=== PATIENT | female | born 1990 | race Caucasian/White ===

== ENCOUNTER → 2024-06-09 | Day surgery (SDC) | payer MEDICAID ==
[~2024-06-09] VITALS: Ht 157.5 cm; Wt 77.0 kg
[~2024-06-09] MED LIST: ACETAMINOPHEN IV 1000 MG/100ML (10MG/ML) IV PRN; DexAMETHasone SOD PHOS 10MG/1ML VIAL INJ ONE; HYDR1TAB97 PO; IBUP-1456 PO; MEPERIDINE HCL (25 MG/ML) 1ML VIAL ONE; MEPERIDINE HCL (50 MG/ML) 1 ML VIAL ONE; METOCLOPRAMIDE HCL 5MG/ml INJ 2ml VIAL IV ONE; ONDANSETRON HCL 4 MG/2 ML VIAL IV ONE; ONDANSETRON HCL 4 MG/2 ML VIAL ONE; PROPOFOL 10 MG/ML 20 ML IV ONE; ROCURONIUM 10MG/ML 10ML VIAL IV ONE; SUCCINYLCHOLINE CHLORIDE 20 MG/ML 10ML VIAL IV ONE; SUGAMMADEX 200mg/2ml Vial (100MG/ML) IV ONE; ceFAZolin 2 GM/D5W100ml 100 ML IV ONE; ceFAZolin 2 GM/D5W50ml 50 ML IV ONE; fentaNYL CITRATE 100 MCG/2 ML VL ONE
--- NOTE | 2024-06-09 11:36 | ED.PDOC ---
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 Patient states that on Thursday (06/05/2024) she had a confirmed ectopic and was seen by Dr. Shen and given medication to break up the product of conception. Patient states that since then the pain has been increasing and is now bloating. Patient followed up with [facility] and was told to go to the ER in case there may be a rupture. Patient is here requesting an ultrasound to check if the ectopic ruptured. No other symptoms or modifying factors present at this time. 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 Family History Family History: Unknown Social History Smoker: Non-Smoker Alcohol: Occasionally Drugs: Marijuana Lives In: Home Constitutional: denies: chills, diaphoresis, fatigue, fever, malaise, sweats, weakness, others EENTM: denies: blurred vision, double vision, ear bleeding, ear discharge, ear drainage, ear pain, ear ringing, eye pain, eye redness, hearing loss, mouth pain, mouth swelling, nasal discharge, nose bleeding, nose congestion, nose pain, photophobia, tearing, throat pain, throat swelling, voice changes, others Respiratory: denies: cough, hemoptysis, orthopnea, SOB at rest, shortness of breath, SOB with excertion, stridor, wheezing, others Cardiovascular: denies: chest pain, dizzy spells, diaphoresis, Dyspnea on exertion, edema, irregular heart beat, left arm pain, lightheadedness, palpitations, PND, syncope, others Gastrointestinal: reports: abdominal pain, nausea; denies: abdomen distended, blood streaked bowels, constipated, diarrhea, dysphagia, difficulty swallowing, hematemesis, melena, poor appetite, poor fluid intake, rectal bleeding, rectal pain, vomiting, others Genitourinary: reports: pain, ; denies: abnormal vagina bleeding, burning, dyspareunia, dysuria, flank pain, frequency, hematuria, incontinence, vagina discharge, urgency, others Neurological: denies: dizziness, fainting, headache, left sided numbness, left sided weakness, numbness, paresthesia, pre-existing deficit, right sided numbness, right sided weakness, seizure, speech problems, tingling, tremors, weakness, others Musculoskeletal: denies: back pain, gout, joint pain, joint swelling, muscle pain, muscle stiffness, neck pain, others Integumetry: denies: bruises, change in color, change in hair/nails, dryness, laceration, lesions, lumps, rash, wounds, others Allergic/Immunocompromised: denies: Difficulty Healing, Frequent Infections, Hives, Itching, others Hematologic/Lymphatic: denies: anemia, blood clots, easy bleeding, easy bruising, swollen glands, others Endocrine: denies: excessive hunger, excessive sweating, excessive thirst, excessive urination, flushing, intolerance to cold, intolerance to heat, unexplained weight gain, unexplained weight loss, others Psychiatric: denies: anxiety, bipolar disorder, depression, hopeless, panic disorder, schizophrenia, sleepless, suicidal, others All Other Systems: Reviewed and Negative Physical Exam General Appearance: Moderate Distress, Normal HEENT: Normal ENT Inspection, Pharynx Normal, TMs Normal Neck: Full Range of Motion, Non-Tender, Normal, Normal Inspection Respiratory: Chest Non-Tender, Lungs Clear, No Accessory Muscle Use, No Respir atory Distress, Normal Breath Sounds Cardiovascular: No Edema, No JVD, No Murmur, No Gallop, Normal Peripheral Pulses, Regular Rate/Rhythm Breast Exam: Deferred Gastrointestinal: No Organomegaly, Non Tender, No Pulsatile Mass, Normal Bowel Sounds, Soft Genitalia: Deferred Pelvic: Deferred Rectal: Deferred Extremities: No calf tenderness, Normal capillary refill, Normal inspection, Normal range of motion, Non-tender, No pedal edema Musculoskeletal : Apperance: Normal 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) Vaginal Bleeding: - Complete, - Incomplete, - Inevitable, - Missed, - Threatened X-Ray, Labs, Meds, VS Vital Signs Date Time Temp Pulse Resp B/P (MAP) Pulse Ox O2 Delivery O2 Flow Rate FiO2 06/09/24 12:37 98.2 87 18 129/81 (97) 99 98.2 06/09/24 11:23 98.2 90 16 132/60 (84) 99 Lab Test 06/09/24 12:57 06/09/24 11:20 Range/Units White Blood Count Pending Red Blood Count Pending Hemoglobin Pending Hematocrit Pending Mean Corpuscular Volume Pending Mean Corpuscular Hemoglobin Pending Mean Corpuscular Hemoglobin Concent Pending Red Cell Distribution Width Pending Platelet Count Pending Mean Platelet Volume Pending Neutrophils (%) (Auto) Pending Lymphocytes (%) (Auto) Pending Monocytes (%) (Auto) Pending Basophils (%) (Auto) Pending Neutrophils # (Auto) Pending Lymphocytes # (Auto) Pending Monocytes # (Auto) Pending Sodium Level Pending Potassium Level Pending Chloride Level Pending Carbon Dioxide Level Pending Anion Gap Pending Blood Urea Nitrogen Pending Creatinine Pending Glomerular Filtration Rate Calc Pending BUN/Creatinine Ratio Pending Serum Glucose Pending Calcium Level Pending Prothrombin Time Pending Prothrombin Time INR Pending Activated Partial Thromboplast Time Pending Beta HCG, Quantitative 949.7 H 1.5-4.2 mIU/mL Current Medications Medications (Trade) Dose Ordered Sig/Mary Grace Route Start Time Stop Time Status Last Admin Sodium Chloride 1,000 ml @ 1,000 mls/hr Q1H ONCE IVB 06/09/24 12:45 06/09/24 13:44 06/09/24 12:57 Patient alert. Complaining of abdominal cramping. Vitals stable. Answering all questions. Reviewed her previous visit. Possible ectopic . She did speak to Dr. Bello for which he recommended pill to help with the ectopic. Explained to the patient. OBGYN has saw the patient. Ultrasound reviewed does reveal a fluid. She will be taken to the OR. Time of 1ST Reevaluation: 11:54 Reevaluation 1ST: Unchanged Patient Education/Counseling: Diagnosis, Treatment, Prognosis Family Education/Counseling: No Family Present Departure 1 Departure Time of Disposition: 11:56 Impression: Primary Impression: Ectopic Qualified Codes: O00.90 - Unspecified ectopic without intrauterine Disposition: ADMITTED INPATIENT Admit to: Med Surg Condition: Guarded Critical Care Note Critical Care Time?: Yes (45 min-critical care time only) Stability Stability form required: No Heart Score Heart Score: Heart Score Response (Comments) Value History N/A 0 EKG N/A 0 Age N/A 0 Risk Factors N/A 0 Troponin N/A 0 Total 0 I personally scribed for CRISTIAN MCWILLIAMS MD ([email or web address]) on 06/09/24 at 11:36. Electronically submitted by Cem Chisholm ([email or web address]). CRISTIAN MCWILLIAMS MD Jun 09, 2024 11:36
[2024-06-09] MEDS: MORPHINE SULFATE 4 MG/ML SYR/VIAL IV ONE (12:37)
[2024-06-09 12:55] VITALS: PULSE 78; RESP 12; O2SAT 99
[2024-06-09] MEDS: SODIUM CHLORIDE 0.9% 1,000 ML IVB ONE (12:57)
[2024-06-09] MEDS: ONDANSETRON HCL 4 MG/2 ML VIAL IV ONE (12:57)
--- NOTE | 2024-06-09 13:01 | DVHHP2 ---
MANAGER INSPECTION CC & HPI Date Date of Admission: Jun 09, 2024 Chief Complaints: Reason for admission: Ruptured Ectopic History of Present Complaints History of Present Complaints 34y LMP 04/24/24, EGA 6w4d Patient took Plan B on 05/04/24 Went to ER on 05/27 for HCG+ and pain/vaginal spotting Went to [facility] for [facility] TAB and given medical treatment (Misoprostol and Mefiprostone?) for Told HCG was still rising, so had D&C on 06/03 (no villi per patient on pathology) HCG was 3915 on 06/04 and 5248 on 06/05 Patient [facility] Presented to ER due to increased abdominal pain and minimal vaginal bleeding. Denies syncope, palpitations or dizziness. Pain has increased and been present since last night. 04/02 pain. US shows possible ruptured right ectopic with free fluid moderate in the pelvis. HCG is 900 Past Medical History Cardiac: No pertinent Hx Pulmonary: No pertinent Hx Central Nervous System: No pertinent Hx GI: No pertinent Hx Hemotology/Oncology: No pertinent Hx Hepatobiliary: No pertinent Hx Psychiatric: No pertinent Hx Musculoskeletal: No pertinent Hx Rheumotologic: No pertinent Hx Infectious Disease: No peritnent Hx ENT: No pertinent Hx Renal/: No pertinent Hx Endocrine: No pertinent Hx Dermatology: No pertinent Hx Past Surgical History: No pertinent Hx Family History: No pertinent Hx Smoker: No Hx (Negative) Alocohol: None Drugs: None Lives with: With family Domestic Violence: Neg Review of Systems Constitutional: No symptom reported Ears, Nose, & Throat: No symptom reported Eyes: No symptom reported Pulmonary/Respiratory: No symptom reported Cardiovascular: No symptom reported Gastrointestinal: No symptom reported Genitourinary: No symptom reported Musculoskeletal: No symptom reported Skin: No symptom reported Psychiatric: No symptom reported Endocrine: No symptom reported Hemotologic/Lymphatic: No symptom reported Allergies: Coded Allergies: Penicillins (Verified Allergy, Unknown, 06/06/24) Physical Exam Physical Exam Vitals: Vital Signs Date Time Temp Pulse Resp B/P (MAP) Pulse Ox O2 Delivery O2 Flow Rate FiO2 06/09/24 12:37 98.2 87 18 129/81 (97) 99 98.2 HEENT: NCAT Heart: Rhythm Normal Lungs: Clear Abdomen: Other (Tender, distended. guarding in RLQ) Extremities: Normal Reflexes: Normal Manager Hris/Pelvic Exam: Not done Assessment and Plan Plan Assessment and Plan: Suspected Ruptured Rt Ectopic (tubal) with hemoperitoneum (free fluid on US) Plan: Consented for Operative laparoscopy, evacuation of hemoperitoneum, Right Salpingectomy possible right salpingoophorectomy, possible laparotomy R/B/A discussed with patient. Risks of pain, scar, bleeding, infection, injury to bowel/bladder, adjacent organs reviewed. Informed consent obtained RN in ER witnessed consent process Consent obtained for Blood transfusion . Date of Service: Jun 09, 2024 Billing Provider: [place] DO Common Visit Codes: [id number] INP/OBS CARE (HIGH) [place] DO Jun 09, 2024 13:01
[2024-06-09 13:08] LABS: INR 0.98 (0.9-1.15); Partial Thromboplastin Time 27.3 SEC (24.5-34.5); Prothrombin Time 10.4 sec (9.3-11.8)
--- NOTE | 2024-06-09 13:09 | DVH ---
INDICATION: Ectopic follow-up TECHNIQUE: Grayscale, color-flow Doppler, and spectral Doppler ultrasound of the pelvis is COMPARISON: US OB ULTRASOUND COMP LESS 14WKS on DOS: 06/06/24, US OB ULTRASOUND COMP LESS 14WKS on DO S: 06/06/24 FINDINGS: The uterus measures 9.8 x 4.1 x 6.2 cm. No intrauterine is visualized compared to prior exa m. Tiny sac-like structure seen within the endometrium without pole or yolk sac identified at t his time. Right ovary measures 3.2 x 2.3 x 2.9 cm. Masslike structure adjacent to the right ovary wit h peripheral hypervascularity. This measures a proximally 2.0 x 1.6 x 1.9 cm. Right ovary demonstrate s dopplerable blood flow and spectral analysis. Left ovary measures 2.4 x 2.4 x 1.5 cm which appears within normal limits. Increase in small volume free fluid in the pelvis with debris. IMPRESSION: 1. No definite intrauterine at this time. Masslike structure in the right adnexal region w ith peripheral hypervascularity suggestive of ectopic again visualized. Increase in small v olume free fluid in the pelvis with debris which may represent hemoperitoneum. Ruptured ectopic pregn alyce is of concern.
[2024-06-09 13:13] LABS: Basophils # (auto) 0.1 10 ^3/uL (0-0.2); Basophils % (auto) 0.7 % (0.0-2.0); Eosinophils # (auto) 0.1 10 ^3/uL (0-0.8); Eosinophils % (auto) 1.1 % (0.0-7.0); Hematocrit 35.9 % (36.0-46.0); Lymphocytes % (auto) 25.5 % (10.0-50.0); Mean Corpuscular Hgb Conc. 33.4 g/dL (32.0-36.0); Mean Corpuscular Volume 95.8 fL (80.0-100.0); Monocytes # (auto) 0.5 10 ^3/uL (0-1.3); Monocytes % (auto) 4.3 % (0.0-12.0); Neutrophils % (auto) 68.4 % (37.0-80.0); Nucleated Red Blood Cells % 0.1 %; Platelet Count (auto) 335 10^3/uL (140-450); Red Blood Cells 3.75 10^6/uL (4.0-5.20); Red Cell Distribution Width 13.2 % (11.8-14.3); White Blood Cell 11.7 10^3/uL (4.4-10.8)
[2024-06-09] MEDS: LACTATED RINGER'S 1,000 ML IV SCH (13:15)
[2024-06-09 13:25] LABS: Chloride 108 mmol/L (98-107); Potassium 3.5 mmol/L (3.5-5.1); Sodium 138 mmol/L (136-145)
[2024-06-09 13:26] LABS: Anion Gap 4 (5-15); Calcium 9.7 mg/dL (8.7-10.4); Carbon Dioxide 26 mmol/L (20-31)
[2024-06-09 13:31] LABS: Glucose 93 mg/dL (74-106)
[2024-06-09 13:41] LABS: BUN/Creatinine Ratio 6.8 (10.0-20.0); Blood Urea Nitrogen < 5 mg/dL (9-23)
[2024-06-09 14:18] LABS: Urine Bacteria None Seen /hpf (None Seen)
[2024-06-09 14:37] LABS: Urine Blood 3+ /uL (Negative); Urine Clarity Turbid (Clear); Urine Color Yellow (Yellow); Urine Mucus FEW (None Seen); Urine Protein, UAD 1+ (Negative); Urine Specific Gravity 1.032 (1.001-1.035); Urine Urobilinogen 2 mg/dL (Negative); Urine WBC 10 /hpf (0 - 5)
--- NOTE | 2024-06-09 14:46 | DVH ---
EXAM: XY CHEST XRAY 1 VIEW Indication:S/P NG TUBE PLACEMENT Technique: Single frontal view of the chest was obtained Comparison: None FINDINGS: Lines and Tubes: Enteric tube projects in appropriate position. Lungs: No focal consolidation. Pleura: No effusion. No pneumothorax. Cardiomediastinal contours: Unremarkable Bones: No acute osseous abnormality. IMPRESSION: Enteric tube projects in appropriate position. No acute cardiopulmonary disease.
[2024-06-09] MEDS: BUPIVACAINE 0.25% INJ 50ML VIAL ONE (15:51)
[2024-06-09 16:10] VITALS: TEMP 97.5
--- NOTE | 2024-06-09 16:15 | DVHDS2 ---
Physician Discharge Progress N Final Diagnosis: Rt. Tubal s/p laparoscopic Rt Salpingectomy Operations or Procedures: Operations or Procedures Laparoscopic Rt salpingectomy, evacuation of hemoperitoneum Condition on Discharge: Stable Disposition: Home Discharge Instructions: Diet: Regular Activity: Light activity Follow Up/Referral: [address] Lake Medications: [place] 5mg, Ibuprofen 600mg Follow Up Care: Discharge Statement: "Patient was advised to return to the ER or call 911 if any headaches, dizziness, shortness of breath, chest pain, abdominal pain, bleeding, fevers, or worsening of medical condition. Patient was counseled about treatment plan, medications, possible side effects, patientverbalized understanding. All questions were answered to the best of my ability. This discharge took greater then 30 minutes in planning, reviewing documentation, counseling the patient, and discussing with other team members." S[place] DO Jun 09, 2024 16:15
--- NOTE | 2024-06-09 16:37 | DVHOP ---
DATE OF SURGERY: 06/09/2024 PREOPERATIVE DIAGNOSIS: Ruptured ectopic . FINAL DIAGNOSIS: Ruptured right tubal (ectopic) . 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 TYPE OF ANESTHESIA: General endotracheal. ANESTHESIOLOGIST: Jose Garcia DO PROCEDURES PERFORMED: * Operative laparoscopic right total salpingectomy. * Evacuation of hemoperitoneum. DESCRIPTION OF FINDINGS: An enlarged uterus, approximately 10 week size, uterine cavity sounds to 9 cm. The left fallopian tube and ovary were normal, however did have filmy adhesions. The right fallopian tube contained an ampullary 3 cm ectopic with bleeding. There was 100 mL of hemoperitoneum and clots noted in the pelvis. There was adhesions in the right lower quadrant of the bowel to the abdominal wall. There were filmy adhesions in the posterior cul-de-sac. Other intraperitoneal anatomy was normal. Appendix visualized. INDICATIONS FOR SURGERY: Unsuccessful treatment with methotrexate, free fluid on ultrasound and increasing pelvic pain TECHNICAL PROCEDURE: After informed consent was obtained, the patient was taken to the operating room where her general anesthesia was found to be adequate. She was placed in dorsal lithotomy position in Alec stirrups. The vagina, perineum and abdomen were thoroughly prepped and the patient sterilely draped in the usual fashion. A pelvic exam was then performed under anesthesia. A weighted speculum was placed into the patient's vagina. The anterior lip of the cervix was grasped with a single tooth tenaculum. Uterine cavity sounded to 9 cm. The HUMI uterine manipulator was placed transcervically and the balloon inflated. A transurethral Sarkar was placed. All instrumentation was removed from the patient's vagina. Attention was then placed to the abdomen where a 5 mm skin incision was made at the base of the umbilicus. The Veress needle was used to enter the peritoneal cavity. Intraperitoneal placement was confirmed with the hanging water drop test. Carbon dioxide gas was infused and pneumoperitoneum obtained in the usual fashion. Using a 5 mm Optiview trocar direct entry into the abdomen was performed. All layers of the abdominal wall were visualized and successful entry into the peritoneal cavity was confirmed directly with the laparoscope. Survey of the abdomen and pelvis revealed the above noted findings. A 12 mm Optiview trocar was placed to the patient's left of midline under direct visualization and another 5 mm to the patient's right of midline. The fallopian tube was found on the right as described above. The uterus was manipulated with the HUMI manipulator. The abdomen was systematically inspected as described above. The hemoperitoneum was evacuated using suction. Approximately 110 mL of hemoperitoneum were present. The fallopian tube was bleeding at the distal end on the right, but no transluminal rupture of the fallopian tube. Using the LigaSure device, the right fallopian tube was transected with the LigaSure device. Hemostasis was obtained. There was no bleeding from the mesosalpinx. The right fallopian tube containing the ectopic was placed in the EndoCatch bag and removed through the 12 mm port. The specimen was submitted. The abdomen was thoroughly irrigated with saline and hemostasis was confirmed under low pressure. I then proceeded to close the #12 port using the Benji-Sarah closure device. We used 0 Vicryl to approximate the fascial defect with good tissue approximation. Next, the carbon dioxide gas was released. The trocars were removed under direct visualization. The three abdominal incisions were closed using a 3-0 Monocryl in subcuticular fashion and a thin layer of Dermabond was placed over these incisions. The umbilicus was injected with 10 mL of 0.25% Marcaine with epinephrine and the left and right incisions were each injected with 5 mm of 0.25% Marcaine with epinephrine. Next, the transurethral Sarkar and the cervical manipulator were removed with no bleeding noted. The patient was taken out of lithotomy position, awakened, and taken to recovery room in stable condition. INTRAOPERATIVE COMPLICATIONS: None. ESTIMATED BLOOD LOSS: Less than 15 mL from the procedure, 110 mL from hemoperitoneum. SPECIMENS: Right fallopian tube containing the ectopic . COMPLICATIONS: None. MEDICATIONS: The patient received 2 grams of Ancef prior to skin incision. OTHER FINDINGS: The patient's blood type is O Rh positive. DO ADRI Aguero TID: [id number] RECEIPT: [id number] [facility]
[2024-06-09] MEDS: MEPERIDINE HCL (25 MG/ML) 1ML VIAL IV PRN (16:40)
[2024-06-09 17:25] VITALS: BP 123/75; PULSE 77; RESP 14; O2SAT 98
== END | disposition home or self-care (01) ==
LOC: ER 11:08 → SUR 11:08 → ER 14:29
PROVIDERS: ATTEND Obstetrics & Gynecology
DX: O00.101 Right tubal pregnancy without intrauterine pregnancy (principal); K66.0 Peritoneal adhesions (postprocedural) (postinfection); F11.90 Opioid use, unspecified, uncomplicated; E66.01 Morbid (severe) obesity due to excess calories; Z68.31 Body mass index [BMI] 31.0-31.9, adult; Z88.0 Allergy status to penicillin
CPT/HCPCS: 36415; 59151; 71045; 76801; 80048; 81001; 84702; 85025; 85610; 85730; 86850; 86900; 86901; 88305; 99285; J0330; J0690; J1100; J2175; J2405; J2704; J3010; J3490

== ENCOUNTER 2025-05-06 03:10 | Emergency (ER) | payer MEDICAID ==
[~2025-05-06] VITALS: Ht 154.9 cm; Wt 76.0 kg
[~2025-05-06 03:10] MED LIST changes: -ACETAMINOPHEN IV 1000 MG/100ML (10MG/ML) IV PRN; -DexAMETHasone SOD PHOS 10MG/1ML VIAL INJ ONE; -MEPERIDINE HCL (25 MG/ML) 1ML VIAL ONE; -MEPERIDINE HCL (50 MG/ML) 1 ML VIAL ONE; -METOCLOPRAMIDE HCL 5MG/ml INJ 2ml VIAL IV ONE; -ONDANSETRON HCL 4 MG/2 ML VIAL IV ONE; -ONDANSETRON HCL 4 MG/2 ML VIAL ONE; -PROPOFOL 10 MG/ML 20 ML IV ONE; -ROCURONIUM 10MG/ML 10ML VIAL IV ONE; -SUCCINYLCHOLINE CHLORIDE 20 MG/ML 10ML VIAL IV ONE; -SUGAMMADEX 200mg/2ml Vial (100MG/ML) IV ONE; -ceFAZolin 2 GM/D5W100ml 100 ML IV ONE; -ceFAZolin 2 GM/D5W50ml 50 ML IV ONE; -fentaNYL CITRATE 100 MCG/2 ML VL ONE
[2025-05-06 03:15] VITALS: BP 113/64; PULSE 70; RESP 16; TEMP 98; O2SAT 100
--- NOTE | 2025-05-06 03:28 | ED.PDOC ---
EVENTS MANAGER HPI Comments 35-year-old female came to ER For vaginal bleeding. Patient is a ap proximately 11 weeks . States few hours ago, she started having vaginal bleeding with mild abdominal cramping prompting patient to come to the emergency room Chief Complaint: Vaginal Bleed Time Seen by MD: 03:27 Reviewed Notes: Nurses Notes Allergies: Coded Allergies: Penicillins (Verified Allergy, Unknown, 06/06/24) Home Meds Active Scripts Ibuprofen (Ibuprofen) 800 Mg Tab, 1 TAB PO TID PRN, #30 TAB Prov:[place] DO 06/09/24 Hydrocodone-Acetaminophen (Hydrocodone/Acetaminophen 5-325 mg) 1 Tab Tab, 1 TAB PO Q6HPRN PRN, #5 TAB Prov:HALIMALUISRadhaSANTO Deborah DO 06/09/24 Information Source: Patient Mode of Arrival: Ambulatory Timing: Hours Severity: Mild Bleeding Quality: Bright Red Onset Of Mass/Bleeding: Spontaneous Sexual Activity: Last Consensual Lacey: Unknown Control: None History of: Current Associated Signs and Symptoms: Vaginal Bleeding, Abdominal Pain Past Medical History PAST MEDICAL HISTORY: Denies 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 6 Para 4 LMP February 25, 2025 Family History Family History: Reviewed,noncontributory to illness Social History Smoker: Non-Smoker Alcohol: Denies ETOH Use Drugs: Denies Drug Use Lives In: Home Constitutional: denies: chills, diaphoresis, fatigue, fever, malaise, sweats, weakness, others EENTM: denies: blurred vision, double vision, ear bleeding, ear discharge, ear drainage, ear pain, ear ringing, eye pain, eye redness, hearing loss, mouth pain, mouth swelling, nasal discharge, nose bleeding, nose congestion, nose pain, photophobia, tearing, throat pain, throat swelling, voice changes, others Respiratory: denies: cough, hemoptysis, orthopnea, SOB at rest, shortness of breath, SOB with excertion, stridor, wheezing, others Cardiovascular: denies: chest pain, dizzy spells, diaphoresis, Dyspnea on exertion, edema, irregular heart beat, left arm pain, lightheadedness, palpitations, PND, syncope, others Gastrointestinal: reports: abdominal pain; denies: abdomen distended, blood streaked bowels, constipated, diarrhea, dysphagia, difficulty swallowing, hematemesis, melena, nausea, poor appetite, poor fluid intake, rectal bleeding, rectal pain, vomiting, others Genitourinary: reports: abnormal vagina bleeding; denies: burning, dyspareunia, dysuria, flank pain, frequency, hematuria, incontinence, pain, , vagina discharge, urgency, others Neurological: denies: dizziness, fainting, headache, left sided numbness, left sided weakness, numbness, paresthesia, pre-existing deficit, right sided numbness, right sided weakness, seizure, speech problems, tingling, tremors, weakness, others Musculoskeletal: denies: back pain, gout, joint pain, joint swelling, muscle pain, muscle stiffness, neck pain, others Integumetry: denies: bruises, change in color, change in hair/nails, dryness, laceration, lesions, lumps, rash, wounds, others Allergic/Immunocompromised: denies: Difficulty Healing, Frequent Infections, Hives, Itching, others Hematologic/Lymphatic: denies: anemia, blood clots, easy bleeding, easy bruising, swollen glands, others Endocrine: denies: excessive hunger, excessive sweating, excessive thirst, excessive urination, flushing, intolerance to cold, intolerance to heat, unexplained weight gain, unexplained weight loss, others Psychiatric: denies: anxiety, bipolar disorder, depression, hopeless, panic disorder, schizophrenia, sleepless, suicidal, others Physical Exam General Appearance: No Apparent Distress, Normal HEENT: Normal ENT Inspection, Pharynx Normal, TMs Normal Neck: Full Range of Motion, Non-Tender, Normal, Normal Inspection Respiratory: Chest Non-Tender, Lungs Clear, No Accessory Muscle Use, No Respiratory Distress, Normal Breath Sounds Cardiovascular: No Edema, No JVD, No Murmur, No Gallop, Normal Peripheral Pulses, Regular Rate/Rhythm Breast Exam: Deferred Gastrointestinal: No Organomegaly, Non Tender, No Pulsatile Mass, Normal Bowel Sounds, Soft Genitalia: Deferred Pelvic: Deferred Rectal: Deferred Extremities: No calf tenderness, Normal capillary refill, Normal inspection, Normal range of motion, Non-tender, No pedal edema Musculoskeletal : Apperance: Normal Neurologic: Alert, events traffic controller II-XII nml as Tested, No Motor Deficits, Normal Affect, Normal Mood, No Sensory Deficits Cerebellar Function: Normal Reflexes: Normal Skin: Dry, Normal Color, Warm Lymphatic: No Adenopathy Was a procedure done? 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 Diagnosis (PIN TICKET MACHINE OPERATOR) Vaginal Bleeding: - Missed, - Threatened, Blood Loss Anemia, UTI X-Ray, Labs, Meds, VS Vital Signs Date Time Temp Pulse Resp B/P (MAP) Pulse Ox O2 Delivery O2 Flow Rate FiO2 05/06/25 03:15 98.0 70 16 113/64 100 98.0 Lab Test 05/06/25 03:36 Range/Units White Blood Count 11.7 H 4.4-10.8 10^3/uL Red Blood Count 4.02 4.0-5.20 10^6/uL Hemoglobin 12.6 12.2-16.2 g/dL Hematocrit 37.1 36.0-46.0 % Mean Corpuscular Volume 92.2 80.0-100.0 fL Mean Corpuscular Hemoglobin 31.3 28.0-32.0 pg Mean Corpuscular Hemoglobin Concent 34.0 32.0-36.0 g/dL Red Cell Distribution Width 13.7 11.8-14.3 % Platelet Count 313 140-450 10^3/uL Mean Platelet Volume 8.3 6.9-10.8 fL Neutrophils (%) (Auto) 67.6 37.0-80.0 % Lymphocytes (%) (Auto) 25.6 10.0-50.0 % Monocytes (%) (Auto) 4.9 0.0-12.0 % Eosinophils (%) (Auto) 0.8 0.0-7.0 % Basophils (%) (Auto) 1.1 0.0-2.0 % Neutrophils # (Auto) 7.9 1.6-8.6 10 ^3/uL Lymphocytes # (Auto) 3.0 0.4-5.4 10 ^3/uL Monocytes # (Auto) 0.6 0-1.3 10 ^3/uL Eosinophils # (Auto) 0.1 0-0.8 10 ^3/uL Basophils # (Auto) 0.1 0-0.2 10 ^3/uL Nucleated Red Blood Cells 0.0 % Beta HCG, Quantitative 10411.4 H 1.5-4.2 mIU/mL Time of 1ST Reevaluation: 03:24 Reevaluation 1ST: Unchanged Time of 2ND Reevaluation: 05:00 Reevaluation 2ND: eloped Patient Education/Counseling: Diagnosis, Treatment Family Education/Counseling: No Family Present Comments Patient did not want to wait for the ultrasound and did not want to give urine and eloped Departure 1 Departure Time of Disposition: 05:00 Impression: Primary Impression: Threatened miscarriage Disposition: LEFT AWOL/ELOPED Condition: Other (Unknown) Critical Care Note Critical Care Time?: No Stability Stability form required: No Heart Score Heart Score: Heart Score Response (Comments) Value History N/A 0 EKG N/A 0 Age N/A 0 Risk Factors N/A 0 Troponin N/A 0 Total 0 I personally scribed for LINDA ONEAL MD ([email or web address]) on 05/06/25 at 03:28. Electronically submitted by Vito Love ([facility]). LINDA ONEAL MD May 06, 2025 03:28
[2025-05-06 03:50] LABS: Hematocrit 37.1 % (36.0-46.0); Hemoglobin 12.6 g/dL (12.2-16.2); Mean Corpuscular Hemoglobin 31.3 pg (28.0-32.0); Mean Corpuscular Volume 92.2 fL (80.0-100.0); Nucleated Red Blood Cells % 0.0 %
== END 2025-05-06 04:44 | disposition left against medical advice (07) ==
LOC: ER 03:10
DX: O20.0 Threatened abortion (principal); Z3A.11 11 weeks gestation of pregnancy; Z88.0 Allergy status to penicillin
CPT/HCPCS: 36415; 84702; 85025; 86900; 86901

== ENCOUNTER 2025-05-06 08:40 | Emergency (ER) | payer MEDICAID ==
[~2025-05-06] VITALS: Ht 154.9 cm; Wt 75.0 kg
[2025-05-06 08:53] VITALS: BP 117/78; PULSE 74; RESP 18; TEMP 98.2; O2SAT 99
--- NOTE | 2025-05-06 08:57 | ED.PDOC ---
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 PATIENT STATES THAT SHE IS CURRENTLY 11 WEEKS AND STATES SINCE YESTERDAY SHE HAS BEING HAVING VAGINAL BLEEDING. PATIENT STATES THAT SHE HAS GONE THROUGH 3-4 PADS SINCE AND STATES SHE HAS BEEN HAVING ASSOCIATED ABDOMINAL CRAMPING. PATIENT DENIES FEVER, CHILLS, SHORTNESS OF BREATH, CHEST PAIN, ABDOMINAL PAIN, NAUSEA, VOMITING, HEADACHE, OR OTHER COMPLAINTS. NO OTHER SYM PTOMS OR MODIFYING FACTORS AT THIS TIME. PATIENT IS ALERT, ORIENTED X 4, AND HAS STEADY GAIT. Chief Complaint: Vaginal Bleed Time Seen by MD: 08:54 Reviewed Notes: Nurses Notes, Medications, Allergies Allergies: Coded Allergies: Penicillins (Verified Allergy, Unknown, 06/06/24) Home Meds Active Scripts Ibuprofen (Ibuprofen) 800 Mg Tab, 1 TAB PO TID PRN, #30 TAB Prov:[place] DO 06/09/24 Hydrocodone-Acetaminophen (Hydrocodone/Acetaminophen 5-325 mg) 1 Tab Tab, 1 TAB PO Q6HPRN PRN, #5 TAB Prov:[place] DO 06/09/24 Information Source: Patient Mode of Arrival: Ambulatory Timing: Days Prehospital treatment: Treatment Severity: Mild Vaginal Discharge: None Vaginal Lesions: None Vaginal Mass: None Onset Of Mass/Bleeding: Spontaneous Sexual Activity: History of: Current Blood Type: Unknown Symptoms of Possible : None Associated Signs and Symptoms: Vaginal Bleeding, Cramping Past Medical History PAST MEDICAL HISTORY: Denies Surgical History: Denies all surgeries 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 Family History Family History: Reviewed,noncontributory to illness Social History Smoker: Non-Smoker Alcohol: Denies ETOH Use Drugs: Denies Drug Use Lives In: Home Constitutional: denies: chills, diaphoresis, fatigue, fever, malaise, sweats, weakness, others EENTM: denies: blurred vision, double vision, ear bleeding, ear discharge, ear drainage, ear pain, ear ringing, eye pain, eye redness, hearing loss, mouth pain, mouth swelling, nasal discharge, nose bleeding, nose congestion, nose pain, photophobia, tearing, throat pain, throat swelling, voice changes, others Respiratory: denies: cough, hemoptysis, orthopnea, SOB at rest, shortness of breath, SOB with excertion, stridor, wheezing, others Cardiovascular: denies: chest pain, dizzy spells, diaphoresis, Dyspnea on exertion, edema, irregular heart beat, left arm pain, lightheadedness, palpitations, PND, syncope, others Gastrointestinal: denies: abdomen distended, abdominal pain, blood streaked bowels, constipated, diarrhea, dysphagia, difficulty swallowing, hematemesis, melena, nausea, poor appetite, poor fluid intake, rectal bleeding, rectal pain, vomiting, others Genitourinary: reports: abnormal vagina bleeding, ; denies: burning, dyspareunia, dysuria, flank pain, frequency, hematuria, incontinence, pain, vagina discharge, urgency, others Neurological: denies: dizziness, fainting, headache, left sided numbness, left sided weakness, numbness, paresthesia, pre-existing deficit, right sided numbness, right sided weakness, seizure, speech problems, tingling, tremors, w eakness, others Musculoskeletal: denies: back pain, gout, joint pain, joint swelling, muscle pain, muscle stiffness, neck pain, others Integumetry: denies: bruises, change in color, change in hair/nails, dryness, laceration, lesions, lumps, rash, wounds, others Allergic/Immunocompromised: denies: Difficulty Healing, Frequent Infections, Hives, Itching, others Hematologic/Lymphatic: denies: anemia, blood clots, easy bleeding, easy bruising, swollen glands, others Endocrine: denies: excessive hunger, excessive sweating, excessive thirst, excessive urination, flushing, intolerance to cold, intolerance to heat, unexplained weight gain, unexplained weight loss, others Psychiatric: denies: anxiety, bipolar disorder, depression, hopeless, panic disorder, schizophrenia, sleepless, suicidal, others All Other Systems: Reviewed and Negative (SEE HPI) Physical Exam General Appearance: No Apparent Distress, Normal HEENT: Normal ENT Inspection, PERRL/EOMI, Pharynx Normal, TMs Normal Neck: Full Range of Motion, Non-Tender, Normal, Normal Inspection Respiratory: Chest Non-Tender, Lungs Clear, No Accessory Muscle Use, No Respiratory Distress, Normal Breath Sounds Cardiovascular: No Edema, No JVD, No Murmur, No Gallop, Normal Peripheral Pulses, Regular Rate/Rhythm Breast Exam: Deferred Gastrointestinal: No Organomegaly, Non Tender, No Pulsatile Mass, Normal Bowel Sounds, Soft Genitalia: Deferred Pelvic: Normal External Exam, Vaginal Bleeding (NO ACTIVELY VAGINAL BLEEDING AND BLOOD CLOTS. ) Rectal: Deferred Extremities: No calf tenderness, Normal capillary refill, Normal inspection, Normal range of motion, Non-tender, No pedal edema Musculoskeletal : Apperance: Normal Neurologic: Alert, needle control cheniller II-XII nml as Tested, No Motor Deficits, Normal Affect, Normal Mood, No Sensory Deficits Cerebellar Function: Normal Reflexes: Normal Skin: Dry, Normal Color, Warm Peripheral Pulses: 2+ carotid (R), 2+ carotid (L) Lymphatic: No Adenopathy Was a procedure done? 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 Diagnosis (SHOWCASE MAKER) Vaginal Bleeding: Cervicitis, PID, UTI, Vaginitis, Other (CURRENT , SUBCHORIONIC HEMORRHAGE) X-Ray, Labs, Meds, VS Vital Signs Date Time Temp Pulse Resp B/P (MAP) Pulse Ox O2 Delivery O2 Flow Rate FiO2 05/06/25 08:53 98.2 74 18 117/78 (91) 99 98.2 05/06/25 08:53 74 18 99 Room Air* 0 21 05/06/25 08:43 98.0 75 16 108/76 98 98.0 Lab Test 05/06/25 08:55 Range/Units Urine Color Light-yellow Yellow Urine Clarity Turbid H Clear Urine pH 7.0 5.0-9.0 Urine Specific Gladys 1.011 1.001-1.035 Urine Protein Negative Negative Urine Ketones 2+ H Negative Urine Blood 3+ H Negative /uL Urine Nitrite Negative Negative Urine Bilirubin Negative Negative Urine Urobilinogen Normal Negative mg/dL Urine Leukocyte Esterase Negative Negative /uL Urine RBC 2 0 - 4 /hpf Urine Microscopic WBC 2 0-5 /HPF Urine Squamous Epithelial Cells Few <5 /hpf Urine Bacteria Few H None Seen /hpf Urine Glucose Normal Normal mg/dL PATIENT: LATONYA GARZACT: [id number]: [id number] : 1990 LOC: ER ROOM / BED: / AGE / SEX: 35 / F ADM STATUS: REG ER SERVICE [id number] ORDERING PHYSICIAN: BRETT MONCADA PROCEDURE(s): OB4US - OB ULTRASOUND COMP LESS 14WKS REASON: VAGINAL BLEEDING, BETA-HC ORDER NUMBER(s): [id number], ACCESSION NUMBER(s): [id number] CLINICAL HISTORY: VAGINAL BLEEDING, BETA-HC COMPARISON:US OB < 14 WKS on DOS: 04/01/25, US OB ULTRASOUND COMP LESS 14WKS on DOS: 06/09/24, US OB ULTRASOUND COMP LESS 14WKS on DOS: 06/06/24 TECHNIQUE: Transabdominal grayscale sonographic imaging of the uterus and ovaries was performed, assisted by color Doppler technique. Duplex Doppler ultrasound of both ovaries was also performed. FINDINGS: The uterus measures 12.5 x 9.0 x 5.8 cm. There is an intrauterine gestational sac with pole visualized. [place]-rump length measures 3.73 cm, corresponding to an estimated gestational age of 10 weeks 4 days. There is a subchorionic hemorrhage adjacent to the gestational sac with associated septations, measuring up to 7.3 x 0.9 x 6.0 cm. heart rate measures 169 beats per minute. Right ovary measures 2.6 x 1.0 x 2.2 cm. Arterial and venous blood flow demonstrated. Left ovary measures 2.7 x 2.2 x 2.3 cm. Arterial and venous blood flow demonstrated. IMPRESSION: 1. Single living intrauterine with estimated gestational age of 10 weeks 4 days based on 1st trimester ultrasound crown-rump length with BRANDAN of 11/28/2025. 2. Subchorionic hemorrhage adjacent to the gestational sac as described above. ATED BY: JOHN GEORGE DO DICTATED DATE/TIME: 05/06/25 1017 SIGNED BY: JOHN GEORGE DO SIGNED DATE/TIME: 05/06/25 1017 CC: X-Ray, Labs, Meds, VS Comment COURSE: EXTERNAL MEDICAL RECORDS REVIEWED: [NONE] INDEPENDENT HISTORIANS: [NONE] SOCIAL DETERMINANTS OF HEALTH: [NONE] LABS ORDERED: URINALYSIS REVIEWED AND INTERPRETED RESULTS: NONE IMAGING ORDERED: OB ULTRASOUND TREATMENTS ORDERED: NO PROCEDURES PERFORMED: NONE CRITICAL CARE TIME: NONE I HAVE DISCUSSED THE PATIENT WITH THE ATTENDING PHYSICIAN, HE AGREES WITH THE PATIENT'S PLAN OF CARE AND DISPOSITION. BASED ON HISTORY OF PRESENT ILLNESS, AND PHYSICAL EXAM, PATIENT WILL BE DISCHARGED HOME. SHARED DECISION MAKING: DISCUSSED WITH PATIENT THAT THEIR WORKUP WAS NORMAL. PATIENT INSTRUCTED TO FOLLOW UP WITH ELECTRIC METER TESTER HELPER IN 1-2 DAYS FOR RE-EVALUATION OF SYMPTOMS. PATIENT VERBALIZES UNDERSTANDING TO RETURN TO ED FOR NEW OR WORSENING SYMPTOMS OR IF FOLLOW UP WITH PCP CANNOT BE OBTAINED. PATIENT FEELS COMFORTABLE GOING HOME AT THIS TIME. ALL QUESTIONS ADDRESSED AT TIME OF DISCHARGE. Time of 1ST Reevaluation: 10:23 Reevaluation 1ST: Improved Patient Education/Counseling: Diagnosis, Treatment, Need For Follow Up Family Education/Counseling: Diagnosis, Treatment, No Family Present Medical Screening: No EMC Exist At This Time Departure 1 Departure Time of Disposition: 10:30 Impression: Primary Impression: Vaginal bleeding Additional Impression: Threatened in first trimester Disposition: 01 HOME / SELF CARE / HOMELESS Condition: Stable Additional Instructions: F/U POB/SHOWCASE MAKER IN 2 DAYS RECHECK. IF CONDITION BECOME WORSE, RETURN TO ED BIN. Discharged With: Self Critical Care Note Critical Care Time?: No Stability Stability form required: No Heart Score Heart Score: Heart Score Response (Comments) Value History N/A 0 EKG N/A 0 Age N/A 0 Risk Factors N/A 0 Troponin N/A 0 Total 0 I personally scribed for BRETT MONCADA ([email or web address]) on 05/06/25 at 08:57. Electronically submitted by Heather VACA). BRETT MONCADA May 06, 2025 08:57
[2025-05-06 09:36] LABS: Urine Protein, UAD Negative (Negative)
--- NOTE | 2025-05-06 10:19 | DVH ---
CLINICAL HISTORY: VAGINAL BLEEDING, BETA-HC COMPARISON:US OB < 14 WKS on DOS: 04/01/25, US OB ULTRASOUND COMP LESS 14WKS on DOS: 06/09/24, US OB UL TRASOUND COMP LESS 14WKS on DOS: 06/06/24 TECHNIQUE: Transabdominal grayscale sonographic imaging of the uterus and ovaries was performed, assi sted by color Doppler technique. Duplex Doppler ultrasound of both ovaries was also performed. FINDINGS: The uterus measures 12.5 x 9.0 x 5.8 cm. There is an intrauterine gestational sac with feta l pole visualized. [place]-rump length measures 3.73 cm, corresponding to an estimated gestational age of 10 weeks 4 days. There is a subchorionic hemorrhage adjacent to the gestational sac with associate d septations, measuring up to 7.3 x 0.9 x 6.0 cm. heart rate measures 169 beats per minute. Right ovary measures 2.6 x 1.0 x 2.2 cm. Arterial and venous blood flow demonstrated. Left ovary measures 2.7 x 2.2 x 2.3 cm. Arterial and venous blood flow demonstrated. IMPRESSION: 1. Single living intrauterine with estimated gestational age of 10 weeks 4 days based on 1s t trimester ultrasound crown-rump length with BRANDAN of 11/28/2025. 2. Subchorionic hemorrhage adjacent to the gestational sac as described above.
== END 2025-05-06 10:34 | disposition home or self-care (01) ==
LOC: ER 08:40
DX: O20.0 Threatened abortion (principal); O09.291 Supervision of pregnancy with other poor reproductive or obstetric history, first trimester; Z3A.11 11 weeks gestation of pregnancy; Z88.0 Allergy status to penicillin
CPT/HCPCS: 76801; 81001

== ENCOUNTER 2025-06-27 08:56 | Outpatient (CLI) | payer MEDICAID ==
[2025-06-27 10:23] LABS: Hematocrit 39.0 % (36.0-46.0); Hemoglobin 13.4 g/dL (12.2-16.2); Mean Corpuscular Hemoglobin 31.6 pg (28.0-32.0); Mean Corpuscular Volume 92.3 fL (80.0-100.0); Nucleated Red Blood Cells % 0.1 %
== END 2025-06-27 17:00 | disposition home or self-care (01) ==
LOC: LAB 08:56
DX: O03.9 Complete or unspecified spontaneous abortion without complication (principal)
CPT/HCPCS: 36415; 84702; 85025